=== PATIENT | female | born 1970 | race Caucasian/White ===

== ENCOUNTER 2023-07-28 11:10 | Emergency (ER) | payer BC ==
[~2023-07-28] VITALS: Ht 142.2 cm; Wt 48.6 kg
[2023-07-28 13:16] VITALS: BP 126/78; PULSE 100; RESP 16; TEMP 97.9; O2SAT 100
[2023-07-28] MEDS ORDERED: CEPH500C PO (13:43)
[2023-07-28] MEDS ORDERED: NAPR-746 PO (13:43)
== END 2023-07-28 13:45 | disposition home or self-care (01) ==
LOC: ER 11:10
DX: S81.812A Laceration without foreign body, left lower leg, initial encounter (principal); Z79.899 Other long term (current) drug therapy; W20.8XXA Other cause of strike by thrown, projected or falling object, initial encounter; Y93.E9 Activity, other interior property and clothing maintenance; Y92.098 Other place in other non-institutional residence as the place of occurrence of the external cause; Y99.8 Other external cause status
CPT/HCPCS: 12002